=== PATIENT | male | born 1995 | race Caucasian/White ===

== ENCOUNTER 2016-09-05 16:47 | Emergency (ER) | payer OTHER ==
--- NOTE | 2016-09-05 18:29 | ED ORDER SUMMARY ---
..... Patient: TAN MACK R OrderSheet [facility] VisitID: [id number] [place] [address] 21y, M Registration Date/Time: 09/05/2016 ORDER SHEET Weight: 136.4 kg (estimated) Allergies: No Known Drug Allergy GENERAL ORDERS: CBC w Diff Urgent (17:10 09/05/2016 EKoroleva P.A.-C) (Ack 17:11 PWeiler ER Tech1) (17:42 PWeiler ER Tech1) CMP Urgent (17:10 09/05/2016 EKoroleva P.A.-C) (Ack 17:11 PWeiler ER Tech1) (17:42 PWeiler ER Tech1) UA-Culture if indicated Urgent (17:10 09/05/2016 EKoroleva P.A.-C) (Ack 17:11 PWeiler ER Tech1) (17:28 DDean R.N.) Lipase Urgent (17:10 09/05/2016 EKoroleva P.A.-C) (Ack 17:11 PWeiler ER Tech1) (17:42 PWeiler ER Tech1) MEDICATION ORDERS: Tramadol PO 50 mg (NOW) (18:28 09/05/2016 EKoroleva P.A.-C) (Ack 18:43 DDean R.N.) (19:17 DDean R.N.) IV FLUIDS: ORDER SHEET NOTES: [Electronically signed by Danielle Slater PAndreasA.-C (18:58 09/05/2016)] [Electronically signed by Amisha Stevens R.N. (19:17 09/05/2016)] [Electronically locked/signed by Amisha Stevens R.N. (19:17 09/05/2016)]
--- NOTE | 2016-09-05 18:29 | ED NURSING NOTES ---
Clinical Report - Nurses [facility] [address] [place] [address] 09/05/2016 16:48 Patient: TAN MACK TRIAGE Triage time 1657. Acuity: LEVEL 3. Chief Complaint: (Left lower quad abd pain that comes and goes- worse with activity/movememnt). --17:28 Amisha Stevens R.N. 16:57 09/05/16. BP: 143/83. HR: 90. RR: 18. O2 saturation: 98%. Temp: 98.1 F. Pain level now: 08/20. --17:28 Amisha Stevens R.N. Weight: 136.4 kg estimated. Height/Length: 70 inches Per Patient. BMI: 43.1. --17:26 Amisha Stevens R.N. Medications None. --17:25 Amisha Stevens R.N. Allergies No Known Drug Allergy. --17:25 Amisha Stevens R.N. History Arrived by private vehicle. Historian: patient. Accompanied by mother. Primary physician ([facility]). Onset. (2 -3 days ago). SOCIAL HX: Never smoker. No alcohol use or drug use. --17:28 Amisha Stevens R.N. PROBLEMS: Oppositional Defiant Disorder. Personality Disorder. PDD. Sensory integration. ODD. --17:25 Amisha Stevens R.N. ADDITIONAL SURGERIES: Toe surgery. --17:25 Amisha Stevens R.N. Interventions ID band on patient. To treatment room. --17:28 Amisha Stevens R.N. PHYSICAL ASSESSMENT 16:57. Patient gowned. GENERAL / NEURO / PSYCH: Alert. Oriented X 4. Appears in no acute distress. RESPIRATORY: Respirations not labored. CVS: Capillary refill less than 2 seconds. GI / : No pain with urination or frequency of urination. ( denies pain with urination, denies black or bloody bowel movmements). SKIN: Skin is warm and dry. --17:24 Amisha Stevens R.N. NURSING PROGRESS NOTES 16:57 09/05/16. Patient gowned. Head of bed elevated. Reassurance given. Patient identifiers checked. Call light placed in reach. Side rails up. Bed placed in lowest position. Patient ready for evaluation- chart flagged. --16:57 Amisha Stevens R.N. 17:00. Patient ID band checked for patient name and birthdate: patient confirmed. Clean catch urine collected with return of yellow-colored clear urine; sample sent to lab for urinalysis and culture. Specimen labeled in the presence of the patient. --17:23 Amisha Stevens R.N. Patient ID band checked: patient confirmed. Blood samples drawn from the right forearm with butterfly by tech ; labeled in presence of the patient and sent to lab: rainbow set. --17:49 Blaze Ring, NICK Tech1 18:15. ( resting quietly, watching t.v. in no acute distress). --19:16 Amisha Stevens R.N. 18:40 09/05/2016 Tramadol (TraMADol HCl) PO Tablets 50 mg given. Allergies verified, confirmed 5 rights and sedative warning given to the patient. --19:17 Amisha Stevens R.N. DISPOSITION / DISCHARGE 18:45. Condition at departure: unchanged and stable. No learning barriers present. Discharge instructions provided and reviewed with the patient and parent. Reviewed medication(s) (tramadol). Parent verbalized understanding. Written instructions provided in Welsh. The patient was discharged home and accompanied by parent. He left the Emergency Department ambulatory and via private vehicle. Parent driving. --19:15 Amisha Stevens R.N. 18:45 09/05/16. BP: 150/81. HR: 80. RR: 18. O2 saturation: 99%. Temp: deferred. Pain level now: 08/20. --19:15 Amisha Stevens R.N. Locked/Released at 09/05/2016 19:17 by Amisha Stevens R.N.
--- NOTE | 2016-09-05 18:29 | ED CLINICAL REPORT ---
Clinical Report - Physicians/Mid Levels [facility] [address] [place] [address] 09/05/2016 16:48 Patient: TAN MACK Time Seen: 17:23 Sep 05 2016. Arrived- By private vehicle. Historian- patient. HISTORY OF PRESENT ILLNESS Chief Complaint: FLANK PAIN. This started 2 days. It is described as located in the left flank. No nausea or vomiting. (Patient first left flank pain over the last 2 days. He denies any nausea or vomiting. Patient denies any shortness of breath or cough. Denies any diarrhea. Denies any history of similar pain. Patient denies any trauma to the area. Denies pain worsening with movement.). REVIEW OF SYSTEMS No constipation, difficulty with urination, pain with urination, fever or sore throat. No chills. All systems otherwise negative, except as recorded above. PAST HISTORY Problems: Oppositional Defiant Disorder. Personality Disorder. PDD. Sensory integration. ODD. Additional Surgeries: Toe surgery. SOCIAL HISTORY Never smoker. No alcohol use or drug use. ADDITIONAL NOTES The nursing notes have been reviewed. PHYSICAL EXAM Appearance: Alert. Eyes: Eyes normal inspection. ENT: Nose normal. Pharynx normal. CVS: Normal heart rate and rhythm. Respiratory: No respiratory distress. Breath sounds normal. Abdomen: Soft and nontender. Bowel sounds normal. No organomegaly. No mass. The bowel sounds are not abnormal. No mass present. Back: Normal inspection. No CVA tenderness. Skin: Skin warm. Normal skin color. Neuro: Oriented X 3. No motor deficit. LABS, X-RAYS, AND EKG Laboratory Tests: UA-Culture if indicated: (ELIZABETH: 09/05/2016 16:55) ( MsgRcvd 09/05/2016 17:26) Final results Test Result Flag Units (Reference) URINE COLOR YELLOW URINE APPEARANCE CLEAR URINE GLUCOSE NEGATIVE (NEGATIVE) URINE BILIRUBIN NEGATIVE (NEGATIVE) URINE KETONE NEGATIVE (NEGATIVE) URINE SPECIFIC GRAVITY 1.020 (1.010-1.030) URINE PH 6.0 (5.0-8.0) URINE PROTEIN NEGATIVE (NEGATIVE) URINE UROBILINOGEN 0.2 EU/dL (0.2-1.0) URINE NITRITE NEGATIVE (NEGATIVE) URINE BLOOD NEGATIVE (NEGATIVE) URINE LEUK ESTERASE NEGATIVE (NEGATIVE) URINE RBC NONE SEEN rbc/hpf (0-1) URINE WBC RARE wbc/hpf (0-1) URINE EPITHELIAL CELLS RARE EPI/hpf (0-5) URINE BACTERIA NONE SEEN (NONE SEEN) URINE COMMENT CULT NOT INDICATED URINE CULTURES ARE SET-UP BASED ON THE FOLLOWING CRITERIA:POSITIVE NITRITEPOSITIVE LEUKOCYTE ESTERASEGREATER THAN 10 WHITE BLOOD CELLSMODERATE (2+) OR GREATER BACTERIA CBC w Diff: (ELIZABETH: 09/05/2016 17:40) ( MsgRcvd 09/05/2016 17:54) Final results Test Result Flag Units (Reference) WHITE BLOOD COUNT 8.0 K/uL (4.5-11.5) RED BLOOD COUNT 4.62 M/uL (4.50-5.90) HEMOGLOBIN 14.0 gm/dL (13.5-17.5) HEMATOCRIT 41.9 % (41.0-53.0) MEAN CELL VOLUME 91 fL (80-100) MEAN CORPUSCULAR HGB 30 pg (26-34) MEAN CORPUSCULAR HGB CONC 34 g/dL (31-37) RED CELL DISTRIBUTION WIDTH 12.4 % (11.6-14.8) PLATELET COUNT 217 K/uL (150-400) NEUTROPHIL % 63.4 % (50-75) LYMPH % 26.1 % (25-40) MONO % 9.4 % (3-14) EOSINOPHIL % 0.8 % (0-4) BASOPHIL % 0.3 % (0-2) CMP: (ELIZABETH: 09/05/2016 17:40) ( MsgRcvd 09/05/2016 18:17) Final results Test Result Flag Units (Reference) GLUCOSE 132 H mg/dL (70-110) BUN 24 H mg/dL (7-18) CREATININE 0.8 mg/dL (0.6-1.3) Estimated GFR >60 mL/min Estimated GFR- >60 mL/min Note: Persistent reduction over 3 months in eGFR<60 mL/min/1.73 m2 defines CKD. Patients with eGFR values>=60 mL/min/1.73 m2 may also have CKD if evidence ofpersistent proteinuria. Additional information may be foundat www.kidney.org. SODIUM 142 mmol/L (136-145) POTASSIUM 3.9 mmol/L (3.5-5.1) CHLORIDE 104 mmol/L (98-107) CARBON DIOXIDE 26 mmol/L (21-32) CALCIUM 9.2 mg/dL (8.5-10.1) TOTAL PROTEIN 7.8 g/dL (6.4-8.2) ALBUMIN 3.8 g/dL (3.3-5.0) BILIRUBIN, TOTAL 0.3 mg/dL (0.0-1.0) ALKALINE PHOSPHATASE 65 U/L (46-116) AST (SGOT) 30 U/L (15-37) ALT (SGPT) 57 U/L (12-78) LIPASE 101 U/L (73-393) . PROGRESS AND PROCEDURES Course of Care: Here in the ER patient in no distress, no nausea or vomiting. Afebrile. Nonseptic. No signs of leukocytosis. No signs of cardiovascular or pulmonary symptoms. Ambulatory. Exam is nontender. Urinalysis is largely unremarkable, cannot exclude small nephrolithiasis without hematuria. During the time in the ED, the following DDX were considered: acute surgical abdomen, hemodynamic or metabolic instability, dehydration, gastroenteritis-viral, food borne, or bacterial, food intolerance, irritable or inflammatory bowel, infection, sepsis. 09/05/2016 16:57 BP: 143/83. HR: 90. RR: 18. O2 saturation: 98%. Temp: 98.1 F. Pain level now: 5/10. Patient is stable. Symptoms better. Patient/family counseled. Disposition: Discharged. CLINICAL IMPRESSION Acute left flank pain INSTRUCTIONS Drink plenty of fluids. Prescription Medications: Ultram 50 mg: take 1 orally every 6 hours for 3 days, as needed for pain. Dispense fifteen (15). No refills. Follow-up: Follow up with your doctor Thursday in three. (Electronically signed by Danielle Slater P.A.-C 09/05/2016 18:58)
--- NOTE | 2016-09-05 18:29 | ED NURSING NOTES ---
Clinical Report - Nurses [facility] [address] [place] [address] 09/05/2016 16:48 Patient: TAN MACK TRIAGE Triage time 1657. Acuity: LEVEL 3. Chief Complaint: (Left lower quad abd pain that comes and goes- worse with activity/movememnt). --17:28 Amisha Stevens R.N. 16:57 09/05/16. BP: 143/83. HR: 90. RR: 18. O2 saturation: 98%. Temp: 98.1 F. Pain level now: 08/20. --17:28 Amisha Stevens R.N. Weight: 136.4 kg estimated. Height/Length: 70 inches Per Patient. BMI: 43.1. --17:26 Amisha Stevens R.N. Medications None. --17:25 Amisha Stevens R.N. Allergies No Known Drug Allergy. --17:25 Amisha Stevens R.N. History Arrived by private vehicle. Historian: patient. Accompanied by mother. Primary physician ([facility]). Onset. (2 -3 days ago). SOCIAL HX: Never smoker. No alcohol use or drug use. --17:28 Amisha Stevens R.N. PROBLEMS: Oppositional Defiant Disorder. Personality Disorder. PDD. Sensory integration. ODD. --17:25 Amisha Stevens R.N. ADDITIONAL SURGERIES: Toe surgery. --17:25 Amisha Stevens R.N. Interventions ID band on patient. To treatment room. --17:28 Amisha Stevens R.N. PHYSICAL ASSESSMENT 16:57. Patient gowned. GENERAL / NEURO / PSYCH: Alert. Oriented X 4. Appears in no acute distress. RESPIRATORY: Respirations not labored. CVS: Capillary refill less than 2 seconds. GI / : No pain with urination or frequency of urination. ( denies pain with urination, denies black or bloody bowel movmements). SKIN: Skin is warm and dry. --17:24 Amisha Stevens R.N. NURSING PROGRESS NOTES 16:57 09/05/16. Patient gowned. Head of bed elevated. Reassurance given. Patient identifiers checked. Call light placed in reach. Side rails up. Bed placed in lowest position. Patient ready for evaluation- chart flagged. --16:57 Amisha Stevens R.N. 17:00. Patient ID band checked for patient name and birthdate: patient confirmed. Clean catch urine collected with return of yellow-colored clear urine; sample sent to lab for urinalysis and culture. Specimen labeled in the presence of the patient. --17:23 Amisha Stevens R.N. Patient ID band checked: patient confirmed. Blood samples drawn from the right forearm with butterfly by tech ; labeled in presence of the patient and sent to lab: rainbow set. --17:49 Blaze Ring, NICK Tech1 18:15. ( resting quietly, watching t.v. in no acute distress). --19:16 Amisha Stevens R.N. 18:40 09/05/2016 Tramadol (TraMADol HCl) PO Tablets 50 mg given. Allergies verified, confirmed 5 rights and sedative warning given to the patient. --19:17 Amisha Stevens R.N. DISPOSITION / DISCHARGE 18:45. Condition at departure: unchanged and stable. No learning barriers present. Discharge instructions provided and reviewed with the patient and parent. Reviewed medication(s) (tramadol). Parent verbalized understanding. Written instructions provided in Sinhala. The patient was discharged home and accompanied by parent. He left the Emergency Department ambulatory and via private vehicle. Parent driving. --19:15 Amisha Stevens R.N. 18:45 09/05/16. BP: 150/81. HR: 80. RR: 18. O2 saturation: 99%. Temp: deferred. Pain level now: 08/20. --19:15 Amisha Stevens R.N. Locked/Released at 09/05/2016 19:17 by Amisha Stevens R.N.
--- NOTE | 2016-09-05 18:29 | ED ORDER SUMMARY ---
..... Patient: TAN MACK R OrderSheet [facility] VisitID: [id number] [place] [address] 21y, M Registration Date/Time: 09/05/2016 ORDER SHEET Weight: 136.4 kg (estimated) Allergies: No Known Drug Allergy GENERAL ORDERS: CBC w Diff Urgent (17:10 09/05/2016 EKoroleva P.A.-C) (Ack 17:11 PWeiler ER Tech1) (17:42 PWeiler ER Tech1) CMP Urgent (17:10 09/05/2016 EKoroleva P.A.-C) (Ack 17:11 PWeiler ER Tech1) (17:42 PWeiler ER Tech1) UA-Culture if indicated Urgent (17:10 09/05/2016 EKoroleva P.A.-C) (Ack 17:11 PWeiler ER Tech1) (17:28 DDean R.N.) Lipase Urgent (17:10 09/05/2016 EKoroleva P.A.-C) (Ack 17:11 PWeiler ER Tech1) (17:42 PWeiler ER Tech1) MEDICATION ORDERS: Tramadol PO 50 mg (NOW) (18:28 09/05/2016 EKoroleva P.A.-C) (Ack 18:43 DDean R.N.) (19:17 DDean R.N.) IV FLUIDS: ORDER SHEET NOTES: [Electronically signed by Danielle Slater PAndreasA.-C (18:58 09/05/2016)] [Electronically signed by Amisha Stevens R.N. (19:17 09/05/2016)] [Electronically locked/signed by Amisha Stevens R.N. (19:17 09/05/2016)]
--- NOTE | 2016-09-05 19:17 | ED DISCHARGE INSTRUCTIONS ---
Patient: TAN MACK General Instructions [facility] VisitID: [id number] [place] [address] 21y, M Registration Date/Time: 09/05/2016 Acute left flank pain INSTRUCTIONS Drink plenty of fluids. Prescription Medications: Ultram 50 mg: take 1 orally every 6 hours for 3 days, as needed for pain. Dispense fifteen (15). No refills. Follow-up: Follow up with your doctor Thursday in three. ADDITIONAL INFORMATION Flank Pain[Uncertain Cause] The flank is the area between the upper abdomen and the back. Pain here is often related to the kidneyan infection or a kidney stone. Other causes of flank pain include spinal arthritis, pinched nerve from a disk injury, back muscle strain or spasm. The cause of your flank pain is not certain and further tests may be needed. Home Care: You may use acetaminophen (Tylenol) or ibuprofen (Motrin, Advil) to control pain, unless another medicine was prescribed. [NOTE: If you have chronic liver or kidney disease or ever had a stomach ulcer or GI bleeding, talk with your doctor before using these medicines.] If the cause of your pain is coming from the muscles, ice or heat may give relief. During the first two days after injury, apply an ICE PACK to the painful area for 20 minutes every 2-4 hours. This will reduce swelling and pain. HEAT (hot shower, hot bath or heating pad) works well for muscle spasm. You can start with ice, then switch to heat after two days. Some patients feel best alternating ice and heat treatments. Use the one method that feels the best to you. Follow Up with your doctor or as advised by our staff for further evaluation if your symptoms are not improving over the next few days. Return Promptly or contact your doctor if any of the following occur: Repeated vomiting Fever of 100.4F (38C) or higher, or as directed by your healthcare provider Increasing flank pain Pain that spreads to the front of the abdomen Dizziness, weakness or fainting Blood in your urine Burning with urination or frequent urination Increasing pain in the leg Numbness or weakness in the leg You have been given the following additional information: Flank Pain, Uncertain Cause (Electronically signed by Danielle Slater P.A.-C 09/05/2016 18:58)
--- NOTE | 2016-09-05 19:17 | ED MED RECONCILIATION SUMMARY ---
Patient: TAN MACK Medication Reconciliation Report [facility] VisitID: [id number] [place] [address] 21y, M Registration Date/Time: 09/05/2016 Weight: 136.4 kg Height/Length: 70 in. BMI: 43.1 ALLERGIES: No Known Drug Allergy The patient's Home Medications are listed below: NONE. The source(s) of the original Home Medication information: Not obtained. The following Medications were given to the patient in the Emergency Department: Tramadol [PO] PO 50 mg, administered: 09/05/2016 6:40:00 PM The following Medications were prescribed to the patient: Ultram 50 mg: take 1 orally every 6 hours for 3 days, as needed for pain. Dispense fifteen (15). No refills. -- Danielle Slater PPatsy
--- NOTE | 2016-09-05 19:17 | ED MAR SUMMARY ---
..... Medication Administration Record [facility] [address] [place] [address] Patient: TAN MACK Visit ID: [id number] 21y, M Weight: 136.4 kg Height/Length: 70 in BMI: 43.1 ALLERGIES: No Known Drug Allergy Given 18:40 09/05/2016 RodneyAmisha, RAndreasN. Medication Administered: TRAMADOL [PO] (TRAMADOL HCL), Dose: 50 mg Tablets PO. Medication Ordered: Tramadol PO 50 mg (NOW).
--- NOTE | 2016-09-05 19:17 | ED MED RECONCILIATION SUMMARY ---
Patient: TAN MACK Medication Reconciliation Report [facility] VisitID: [id number] [place] [address] 21y, M Registration Date/Time: 09/05/2016 Weight: 136.4 kg Height/Length: 70 in. BMI: 43.1 ALLERGIES: No Known Drug Allergy The patient's Home Medications are listed below: NONE. The source(s) of the original Home Medication information: Not obtained. The following Medications were given to the patient in the Emergency Department: Tramadol [PO] PO 50 mg, administered: 09/05/2016 6:40:00 PM The following Medications were prescribed to the patient: Ultram 50 mg: take 1 orally every 6 hours for 3 days, as needed for pain. Dispense fifteen (15). No refills. -- Danielle Slater PPatsy
--- NOTE | 2016-09-05 19:17 | ED MAR SUMMARY ---
..... Medication Administration Record [facility] [address] [place] [address] Patient: TAN MACK Visit ID: [id number] 21y, M Weight: 136.4 kg Height/Length: 70 in BMI: 43.1 ALLERGIES: No Known Drug Allergy Given 18:40 09/05/2016 RodneyAmisha, RAndreasN. Medication Administered: TRAMADOL [PO] (TRAMADOL HCL), Dose: 50 mg Tablets PO. Medication Ordered: Tramadol PO 50 mg (NOW).
== END 2016-09-05 18:45 | disposition home or self-care (01) ==
LOC: ED SRH 16:47
DX: R10.32 Left lower quadrant pain (principal)
CPT/HCPCS: 90004; 90100; 92235; 95059